=== PATIENT | female | born 1980 | race Two or more races ===

== ENCOUNTER 2017-12-30 20:08 | Emergency (ER) | payer MEDICAID ==
[~2017-12-30] VITALS: Ht 152.4 cm; Wt 49.9 kg
[2017-12-30 20:10] VITALS: BP 110/60
[2017-12-30] MEDS ORDERED: HYDROCODONE BIT/HOMATROPINE 5 ML UDC ONE (21:24)
[2017-12-30] MEDS ORDERED: IBUPROFEN 600 MG TABLET PO ONE ×2 (21:25→21:30)
[2017-12-30] MEDS ORDERED: HYDROCODONE BIT/HOMATROPINE 5 ML UDC PO ONE (21:30)
== END 2017-12-30 21:40 | disposition home or self-care (01) ==
LOC: ER 20:14
DX: J11.1 Influenza due to unidentified influenza virus with other respiratory manifestations (principal); J40 Bronchitis, not specified as acute or chronic
CPT/HCPCS: A4606; Z7610

== ENCOUNTER → 2024-07-10 | Emergency (ER) | payer MEDICAID, OTHER ==
[~2024-07-10] VITALS: Ht 162.6 cm; Wt 68.0 kg
[~2024-07-10] MED LIST: LORAZEPAM INJ 2 MG/ML VIAL ONE
[2024-07-10 22:49] VITALS: BP 108/68; TEMP 98.1; O2SAT 98
[2024-07-10] MEDS: LORAZEPAM INJ 2 MG/ML VIAL IM ONE (23:17)
== END | disposition home or self-care (01) ==
LOC: ER 22:38
DX: F10.129 Alcohol abuse with intoxication, unspecified (principal); F41.0 Panic disorder [episodic paroxysmal anxiety]
CPT/HCPCS: 99283; 96372; 82962; 98960; J2060

== ENCOUNTER 2024-12-18 16:35 | Emergency (ER) | payer MEDICAID, OTHER ==
[~2024-12-18] VITALS: Ht 154.9 cm; Wt 60.8 kg
[2024-12-18 19:26] VITALS: BP 110/75; TEMP 98.1; O2SAT 100
== END 2024-12-18 19:27 | disposition home or self-care (01) ==
LOC: ER 16:43
DX: J06.9 Acute upper respiratory infection, unspecified (principal); Z87.01 Personal history of pneumonia (recurrent)
CPT/HCPCS: 71045-TC